=== PATIENT | male | born 1990 | race Asian ===

== ENCOUNTER 2022-01-03 17:54 | Inpatient (IN) | payer OTHER ==
[~2022-01-03] VITALS: Ht 182.9 cm; Wt 100.0 kg
[2022-01-03 19:12] LABS: Albumin 3.8 g/dL (3.4-5.0); BUN/Creatinine Ratio 9.7; Calcium 9.1 mg/dL (8.5-10.1); Magnesium 2.3 mg/dL (1.6-2.6)
[2022-01-03 19:15] LABS: Bilirubin, Total 0.8 mg/dL (0.2-1.0); Total Protein 7.7 g/dL (6.4-8.2)
[2022-01-03 19:30] LABS: Basophils # (auto) 0 10 ^3/uL (0-0.2); Basophils % (auto) 0.3 % (0.0-2.0); Eosinophils # (auto) 0.1 10 ^3/uL (0-0.8); Eosinophils % (auto) 1.2 % (0.0-7.0); Hematocrit 52.2 % (41.0-53.0); Hemoglobin 17.3 g/dL (13.5-17.5); Lymphocytes # (auto) 1.3 10 ^3/uL (0.4-5.4); Lymphocytes % (auto) 18.1 % (10.0-50.0); Mean Corpuscular Hemoglobin 30.2 pg (28.0-32.0); Mean Corpuscular Hgb Conc. 33.1 g/dL (32.0-36.0); Mean Corpuscular Volume 91.3 fL (80.0-100.0); Monocytes # (auto) 0.6 10 ^3/uL (0-1.3); Monocytes % (auto) 8.1 % (0.0-12.0); Neutrophils # (auto) 5.2 10 ^3/uL (1.6-8.6); Neutrophils % (auto) 72.3 % (37.0-80.0); Red Blood Cells 5.72 10^6/uL (4.5-5.90); Red Cell Distribution Width 12.5 % (11.8-14.3); White Blood Cell 7.2 10^3/uL (4.4-10.8)
[2022-01-03] MEDS ORDERED: ASPirin 325 MG TAB PO ONE (19:45)
[2022-01-03] MEDS ORDERED: SODIUM CHLORIDE 0.9% 1,000 ML IV SCH (20:15)
[2022-01-03] MEDS ORDERED: ACETAMINOPHEN 325 MG TAB PO PRN (20:15)
[2022-01-03] MEDS ORDERED: MORPHINE SULFATE INJ 2 MG/ml SYRG IV PRN (20:15)
[2022-01-03] MEDS ORDERED: ONDANSETRON HCL 4 MG/2 ML VIAL IV PRN (20:15)
[2022-01-03] MEDS ORDERED: LORazepam 0.5 MG TAB PO PRN (20:15)
[2022-01-03] MEDS: ATORVASTATIN 20 MG TAB PO SCH (22:10)
[2022-01-03] MEDS: METOPROLOL TARTRATE 25 MG TAB PO SCH (22:10)
[2022-01-03] MEDS: ENOXAPARIN SOD 100 MG/1 ML SYRINGE SC SCH (22:12)
[2022-01-04 02:24] LABS: Urine Bacteria NONE SEEN /hpf (None Seen); Urine Blood Negative /uL (Negative); Urine Specific Gravity 1.016 (1.001-1.035); Urine WBC <1 /hpf (0 - 3)
[2022-01-04 04:33] LABS: Basophils # (auto) 0.1 10 ^3/uL (0-0.2); Basophils % (auto) 0.9 % (0.0-2.0); Eosinophils # (auto) 0.2 10 ^3/uL (0-0.8); Eosinophils % (auto) 2.8 % (0.0-7.0); Hematocrit 47.5 % (41.0-53.0); Hemoglobin 16.5 g/dL (13.5-17.5); Lymphocytes # (auto) 1.3 10 ^3/uL (0.4-5.4); Lymphocytes % (auto) 20.5 % (10.0-50.0); Mean Corpuscular Hemoglobin 31.4 pg (28.0-32.0); Mean Corpuscular Hgb Conc. 34.7 g/dL (32.0-36.0); Mean Corpuscular Volume 90.5 fL (80.0-100.0); Monocytes # (auto) 0.5 10 ^3/uL (0-1.3); Monocytes % (auto) 8.5 % (0.0-12.0); Neutrophils # (auto) 4.3 10 ^3/uL (1.6-8.6); Neutrophils % (auto) 67.3 % (37.0-80.0); Nucleated Red Blood Cells % 0.2 %; Red Blood Cells 5.25 10^6/uL (4.5-5.90); Red Cell Distribution Width 12.8 % (11.8-14.3); White Blood Cell 6.4 10^3/uL (4.4-10.8)
[2022-01-04 04:47] LABS: BUN/Creatinine Ratio 11.7; Calcium 8.4 mg/dL (8.5-10.1); Magnesium 2.5 mg/dL (1.6-2.6)
[2022-01-04] MEDS: NITROGLYCERIN 0.4 MG SL TAB SL PRN ×4 (05:57→14:47)
[2022-01-04] MEDS: LISINOPRIL 10 MG TAB PO SCH (10:18)
[2022-01-04] MEDS: METOPROLOL TARTRATE 25 MG TAB PO SCH ×2 (10:18→22:17)
[2022-01-04] MEDS: CLOPIDOGREL BISULFATE 75 MG TAB PO SCH (10:18)
[2022-01-04] MEDS: ENOXAPARIN SOD 100 MG/1 ML SYRINGE SC SCH ×2 (10:18→22:16)
[2022-01-04] MEDS: DOCUSATE SOD 100 MG CAP PO SCH (10:20)
[2022-01-04] MEDS: ASPirin 81 mg TAB PO SCH (10:21)
[2022-01-04 14:10] VITALS: BP 135/89
[2022-01-04 14:59] VITALS: BP 121/89
[2022-01-04 22:00] VITALS: BP 128/83
[2022-01-04] MEDS: GABAPENTIN 300 MG CAP PO SCH (22:16)
[2022-01-04] MEDS: ATORVASTATIN 20 MG TAB PO SCH (22:16)
[2022-01-05 05:00] VITALS: BP 126/78
[2022-01-05] MEDS: GABAPENTIN 300 MG CAP PO SCH ×3 (05:46→22:28)
[2022-01-05 06:12] LABS: Alcohol, Urine < 3.0 mg/dL (0-10); Amphetamine Screen, Urine POSITIVE (NEGATIVE); Barbiturate Scree,Urine NEGATIVE (NEGATIVE); Benzodiazephine Screen, Urine NEGATIVE (NEGATIVE); Cannabinoid Screen, Urine NEGATIVE (NEGATIVE); Cocaine Screen, Urine NEGATIVE (NEGATIVE); Opiate Scree,Urine NEGATIVE (NEGATIVE); Phencyclidine Screen, Urine NEGATIVE (NEGATIVE)
[2022-01-05 09:00] VITALS: BP 122/62
[2022-01-05] MEDS: CLOPIDOGREL BISULFATE 75 MG TAB PO SCH (10:47)
[2022-01-05] MEDS: ASPirin 81 mg TAB PO SCH (10:47)
[2022-01-05] MEDS: DOCUSATE SOD 100 MG CAP PO SCH (10:49)
[2022-01-05] MEDS: METOPROLOL TARTRATE 25 MG TAB PO SCH ×2 (10:49→22:28)
[2022-01-05] MEDS: ENOXAPARIN SOD 100 MG/1 ML SYRINGE SC SCH ×2 (10:50→22:28)
[2022-01-05] MEDS: LISINOPRIL 10 MG TAB PO SCH (12:14)
[2022-01-05 13:00] VITALS: BP 127/80
[2022-01-05 17:00] VITALS: BP 105/69
[2022-01-05 22:00] VITALS: BP 119/62
[2022-01-05] MEDS: ATORVASTATIN 20 MG TAB PO SCH (22:27)
[2022-01-06 05:00] VITALS: BP 106/66
[2022-01-06] MEDS: GABAPENTIN 300 MG CAP PO SCH ×3 (05:48→21:57)
[2022-01-06] MEDS ORDERED: ADENOSINE 84 MG in GIVE UN-DILUTED 0 ML IV STA (07:17)
[2022-01-06 09:00] VITALS: BP 104/64
[2022-01-06 09:08] VITALS: BP 116/73
[2022-01-06] MEDS: ASPirin 81 mg TAB PO SCH (10:47)
[2022-01-06] MEDS: ENOXAPARIN SOD 100 MG/1 ML SYRINGE SC SCH ×2 (10:48→21:59)
[2022-01-06] MEDS: DOCUSATE SOD 100 MG CAP PO SCH (10:48)
[2022-01-06] MEDS: CLOPIDOGREL BISULFATE 75 MG TAB PO SCH (10:48)
[2022-01-06] MEDS: METOPROLOL TARTRATE 25 MG TAB PO SCH ×2 (10:48→21:58)
[2022-01-06] MEDS: LISINOPRIL 10 MG TAB PO SCH (10:49)
[2022-01-06 13:00] VITALS: BP 101/60
[2022-01-06 17:00] VITALS: BP 115/79
[2022-01-06] MEDS: ATORVASTATIN 20 MG TAB PO SCH (21:57)
[2022-01-06 22:00] VITALS: BP 114/77
[2022-01-07 05:17] VITALS: BP 108/47
[2022-01-07] MEDS: GABAPENTIN 300 MG CAP PO SCH (06:49)
[2022-01-07 08:00] VITALS: BP 104/71
[2022-01-07] MEDS: ASPirin 81 mg TAB PO SCH (08:17)
[2022-01-07] MEDS: CLOPIDOGREL BISULFATE 75 MG TAB PO SCH (08:17)
[2022-01-07] MEDS: METOPROLOL TARTRATE 25 MG TAB PO SCH (08:25)
[2022-01-07] MEDS: DOCUSATE SOD 100 MG CAP PO SCH (08:25)
[2022-01-07] MEDS: LISINOPRIL 10 MG TAB PO SCH (08:26)
[2022-01-07] MEDS: ENOXAPARIN SOD 100 MG/1 ML SYRINGE SC SCH (08:26)
[2022-01-07 11:09] VITALS: BP 104/71
[2022-01-07] MEDS ORDERED: METO25TA5 PO (11:31)
== END 2022-01-07 12:00 | disposition home or self-care (01) | DRG 190 ==
LOC: ER 17:54 → TELE 20:13 → TELE-CENTR 01-04 12:56
PROVIDERS: ADMIT Hospitalist; ATTEND Family Medicine
DX: I21.4 Non-ST elevation (NSTEMI) myocardial infarction (principal); F15.10 Other stimulant abuse, uncomplicated; I10 Essential (primary) hypertension; Z20.822 Contact with and (suspected) exposure to COVID-19; F17.210 Nicotine dependence, cigarettes, uncomplicated
CPT/HCPCS: 36415; 71045; 78452; 80048; 80053; 80061; 80307; 81001; 83735; 83880; 84443; 84484; 85025; 93005; 93017; 93306; 96360; G0378; J0153

== ENCOUNTER 2022-06-11 19:44 | Emergency (ER) | payer OTHER ==
[~2022-06-11 19:44] MED LIST: METO25TA5 PO
[2022-06-11] MEDS ORDERED: DICYCLOMINE HCL 10 MG CAP PO ONE (20:00)
[2022-06-11] MEDS ORDERED: ONDANSETRON ODT 4 MG TAB PO ONE (20:00)
[2022-06-11 20:48] LABS: Basophils # (auto) 0.1 10 ^3/uL (0-0.2); Basophils % (auto) 0.8 % (0.0-2.0); Eosinophils # (auto) 0.1 10 ^3/uL (0-0.8); Eosinophils % (auto) 0.8 % (0.0-7.0); Hematocrit 48.6 % (41.0-53.0); Hemoglobin 16.3 g/dL (13.5-17.5); Lymphocytes # (auto) 2.7 10 ^3/uL (0.4-5.4); Lymphocytes % (auto) 25.2 % (10.0-50.0); Mean Corpuscular Hemoglobin 31.3 pg (28.0-32.0); Mean Corpuscular Hgb Conc. 33.5 g/dL (32.0-36.0); Mean Corpuscular Volume 93.2 fL (80.0-100.0); Monocytes # (auto) 0.7 10 ^3/uL (0-1.3); Neutrophils % (auto) 66.2 % (37.0-80.0); Nucleated Red Blood Cells % 0.1 %; Red Blood Cells 5.21 10^6/uL (4.5-5.90); Red Cell Distribution Width 12.8 % (11.8-14.3); White Blood Cell 10.6 10^3/uL (4.4-10.8)
[2022-06-11 21:04] LABS: Albumin 3.9 g/dL (3.4-5.0); Calcium 8.8 mg/dL (8.5-10.1); Potassium 3.9 mmol/L (3.5-5.1)
[2022-06-11 21:12] LABS: BUN/Creatinine Ratio 16.7; Bilirubin, Total 0.7 mg/dL (0.2-1.0); Total Protein 7.1 g/dL (6.4-8.2)
[2022-06-12] MEDS ORDERED: DICY10CA PO (00:10)
[2022-06-12] MEDS ORDERED: ONDA-144 PO (00:10)
[2022-06-12 00:28] VITALS: BP 112/70
== END 2022-06-12 00:29 | disposition home or self-care (01) ==
LOC: ER 19:44
DX: R07.89 Other chest pain (principal); R10.84 Generalized abdominal pain; F17.210 Nicotine dependence, cigarettes, uncomplicated; F15.10 Other stimulant abuse, uncomplicated; I10 Essential (primary) hypertension
CPT/HCPCS: 36415; 80053; 84484; 85025; 93005; 99284; J0500; Q0162

== ENCOUNTER 2022-06-22 16:03 | Emergency (ER) | payer OTHER ==
[~2022-06-22] VITALS: Ht 177.8 cm; Wt 102.0 kg
[~2022-06-22 16:03] MED LIST changes: +DICY10CA PO; +ONDA-144 PO
[2022-06-22 16:49] LABS: Basophils # (auto) 0 10 ^3/uL (0-0.2); Basophils % (auto) 0.4 % (0.0-2.0); Eosinophils # (auto) 0.1 10 ^3/uL (0-0.8); Eosinophils % (auto) 0.7 % (0.0-7.0); Hematocrit 46.3 % (41.0-53.0); Hemoglobin 16.2 g/dL (13.5-17.5); Lymphocytes # (auto) 1.6 10 ^3/uL (0.4-5.4); Lymphocytes % (auto) 15.7 % (10.0-50.0); Mean Corpuscular Hemoglobin 31.9 pg (28.0-32.0); Monocytes # (auto) 0.6 10 ^3/uL (0-1.3); Monocytes % (auto) 6.1 % (0.0-12.0); Neutrophils # (auto) 8.1 10 ^3/uL (1.6-8.6); Neutrophils % (auto) 77.1 % (37.0-80.0); Nucleated Red Blood Cells % 0.1 %; Red Blood Cells 5.09 10^6/uL (4.5-5.90); Red Cell Distribution Width 12.4 % (11.8-14.3); White Blood Cell 10.4 10^3/uL (4.4-10.8)
[2022-06-22 17:04] LABS: BUN/Creatinine Ratio 14.9; Calcium 8.6 mg/dL (8.5-10.1); Magnesium 1.9 mg/dL (1.6-2.6)
[2022-06-22 17:07] LABS: Bilirubin, Total 0.5 mg/dL (0.2-1.0); Total Protein 7.6 g/dL (6.4-8.2)
[2022-06-22 18:01] LABS: Urine Bacteria NONE SEEN /hpf (None Seen); Urine Blood Negative /uL (Negative); Urine Hyaline Cast FEW /lpf (0 - 2); Urine Specific Gravity 1.021 (1.001-1.035); Urine WBC 1 /hpf (0 - 3)
[2022-06-22 18:30] LABS: Amphetamine Screen, Urine NEGATIVE (NEGATIVE); Barbiturate Scree,Urine NEGATIVE (NEGATIVE); Benzodiazephine Screen, Urine NEGATIVE (NEGATIVE); Cannabinoid Screen, Urine NEGATIVE (NEGATIVE); Cocaine Screen, Urine POSITIVE (NEGATIVE); Opiate Scree,Urine POSITIVE (NEGATIVE); Phencyclidine Screen, Urine NEGATIVE (NEGATIVE)
[2022-06-22 21:24] VITALS: BP 141/96
== END 2022-06-22 21:36 | disposition home or self-care (01) ==
LOC: ER 16:03
DX: R07.89 Other chest pain (principal); F14.10 Cocaine abuse, uncomplicated; R42 Dizziness and giddiness; F17.210 Nicotine dependence, cigarettes, uncomplicated; F15.10 Other stimulant abuse, uncomplicated; I10 Essential (primary) hypertension
CPT/HCPCS: 36415; 71046; 80053; 80307; 81001; 83735; 84484; 85025; 85379; 93005

== ENCOUNTER 2022-07-09 10:37 | Inpatient (IN) | payer OTHER ==
[~2022-07-09] VITALS: Ht 182.9 cm; Wt 107.1 kg
[2022-07-09 11:03] LABS: Basophils # (auto) 0 10 ^3/uL (0-0.2); Basophils % (auto) 0.5 % (0.0-2.0); Eosinophils # (auto) 0.1 10 ^3/uL (0-0.8); Eosinophils % (auto) 0.9 % (0.0-7.0); Hematocrit 46.8 % (41.0-53.0); Hemoglobin 16.2 g/dL (13.5-17.5); Lymphocytes # (auto) 1.5 10 ^3/uL (0.4-5.4); Lymphocytes % (auto) 22.1 % (10.0-50.0); Mean Corpuscular Hemoglobin 31.6 pg (28.0-32.0); Mean Corpuscular Hgb Conc. 34.6 g/dL (32.0-36.0); Mean Corpuscular Volume 91.1 fL (80.0-100.0); Monocytes # (auto) 0.4 10 ^3/uL (0-1.3); Monocytes % (auto) 5.9 % (0.0-12.0); Neutrophils # (auto) 4.9 10 ^3/uL (1.6-8.6); Neutrophils % (auto) 70.6 % (37.0-80.0); Red Blood Cells 5.14 10^6/uL (4.5-5.90); Red Cell Distribution Width 12.9 % (11.8-14.3); White Blood Cell 6.9 10^3/uL (4.4-10.8)
[2022-07-09 11:28] LABS: Albumin 3.8 g/dL (3.4-5.0); BUN/Creatinine Ratio 21.1; Magnesium 2.2 mg/dL (1.6-2.6); Potassium 3.9 mmol/L (3.5-5.1)
[2022-07-09] MEDS ORDERED: ASPirin 325 MG TAB PO ONE ×2 (11:30→12:15)
[2022-07-09 11:31] LABS: Bilirubin, Total 0.7 mg/dL (0.2-1.0); Total Protein 7.3 g/dL (6.4-8.2)
[2022-07-09 11:42] LABS: Alcohol, Urine < 3.0 mg/dL (0-10); Amphetamine Screen, Urine NEGATIVE (NEGATIVE); Barbiturate Scree,Urine NEGATIVE (NEGATIVE); Benzodiazephine Screen, Urine NEGATIVE (NEGATIVE); Cannabinoid Screen, Urine NEGATIVE (NEGATIVE); Cocaine Screen, Urine POSITIVE (NEGATIVE); Opiate Scree,Urine POSITIVE (NEGATIVE); Phencyclidine Screen, Urine NEGATIVE (NEGATIVE)
[2022-07-09 11:43] LABS: Urine Bacteria NONE SEEN /hpf (None Seen); Urine Blood Negative /uL (Negative); Urine Specific Gravity 1.018 (1.001-1.035); Urine WBC <1 /hpf (0 - 3)
[2022-07-09] MEDS ORDERED: MORPHINE SULFATE 4 MG/ML SYR/VIAL IV PRN (13:30)
[2022-07-09] MEDS ORDERED: ONDANSETRON HCL 4 MG/2 ML VIAL IV PRN (13:30)
[2022-07-09] MEDS ORDERED: NITROGLYCERIN 0.4 MG SL TAB SL PRN (13:30)
[2022-07-09 13:53] LABS: INR 0.96 (0.9-1.15)
[2022-07-10 05:48] LABS: Basophils # (auto) 0 10 ^3/uL (0-0.2); Basophils % (auto) 0.7 % (0.0-2.0); Eosinophils # (auto) 0.1 10 ^3/uL (0-0.8); Eosinophils % (auto) 2.4 % (0.0-7.0); Hematocrit 47.3 % (41.0-53.0); Lymphocytes # (auto) 1.7 10 ^3/uL (0.4-5.4); Mean Corpuscular Hemoglobin 31.1 pg (28.0-32.0); Mean Corpuscular Hgb Conc. 33.8 g/dL (32.0-36.0); Mean Corpuscular Volume 91.8 fL (80.0-100.0); Monocytes # (auto) 0.4 10 ^3/uL (0-1.3); Monocytes % (auto) 7.5 % (0.0-12.0); Neutrophils # (auto) 3.4 10 ^3/uL (1.6-8.6); Neutrophils % (auto) 59.4 % (37.0-80.0); Nucleated Red Blood Cells % 0.2 %; Red Blood Cells 5.16 10^6/uL (4.5-5.90); Red Cell Distribution Width 13.1 % (11.8-14.3); White Blood Cell 5.6 10^3/uL (4.4-10.8)
[2022-07-10] MEDS: ATORVASTATIN 20 MG TAB PO SCH ×2 (05:56→21:47)
[2022-07-10 06:05] LABS: Calcium 8.2 mg/dL (8.5-10.1); Potassium 4.1 mmol/L (3.5-5.1)
[2022-07-10 06:11] LABS: Albumin 3.8 g/dL (3.4-5.0); Bilirubin, Total 0.7 mg/dL (0.2-1.0); Total Protein 7.2 g/dL (6.4-8.2)
[2022-07-10] MEDS: METOPROLOL TARTRATE 25 MG TAB PO SCH ×3 (07:07→21:47)
[2022-07-10] MEDS: DOCUSATE SOD 100 MG CAP PO SCH (10:20)
[2022-07-10] MEDS: ENOXAPARIN SOD 40 MG/0.4 ML SYRINGE SC SCH (10:21)
[2022-07-10] MEDS: ASPirin 81 mg TAB PO SCH (10:21)
[2022-07-10] MEDS: ACETAMINOPHEN 325 MG TAB PO PRN ×2 (13:17→22:20)
[2022-07-10 18:49] VITALS: BP 129/85
[2022-07-10 21:42] VITALS: BP 123/76
[2022-07-11 05:00] VITALS: BP 102/71
[2022-07-11 09:19] VITALS: BP 134/79
[2022-07-11] MEDS: ENOXAPARIN SOD 40 MG/0.4 ML SYRINGE SC SCH (10:12)
[2022-07-11] MEDS: METOPROLOL TARTRATE 25 MG TAB PO SCH (10:13)
[2022-07-11] MEDS: ASPirin 81 mg TAB PO SCH (10:13)
[2022-07-11] MEDS: DOCUSATE SOD 100 MG CAP PO SCH (10:13)
[2022-07-11] MEDS ORDERED: ATO40T PO (11:08)
[2022-07-11] MEDS ORDERED: METO-158 PO (11:08)
[2022-07-11] MEDS ORDERED: ASPI-498 PO (11:08)
[2022-07-11 13:09] VITALS: BP 129/76
== END 2022-07-11 15:02 | disposition home or self-care (01) | DRG 199 ==
LOC: ER 10:37 → TELE 13:28 → TELE-WESTW 07-10 17:24
PROVIDERS: ADMIT Nurse Practitioner Family; ATTEND Family Medicine
DX: I16.0 Hypertensive urgency (principal); I24.9 Acute ischemic heart disease, unspecified; F14.10 Cocaine abuse, uncomplicated; F17.210 Nicotine dependence, cigarettes, uncomplicated; Z20.822 Contact with and (suspected) exposure to COVID-19; I10 Essential (primary) hypertension; R77.8 Other specified abnormalities of plasma proteins; Z82.49 Family history of ischemic heart disease and other diseases of the circulatory system; Z79.82 Long term (current) use of aspirin; Z83.3 Family history of diabetes mellitus; Z71.51 Drug abuse counseling and surveillance of drug abuser; Z71.6 Tobacco abuse counseling
CPT/HCPCS: 36415; 71045; 80053; 80061; 80307; 81001; 83735; 84484; 85025; 85379; 85610; 87426; 93005; 93306; 93971; G0378